=== PATIENT | male | born 1980 | race Two or more races ===

== ENCOUNTER 2020-06-18 22:47 | Emergency (ER) | payer SELFPAY ==
[~2020-06-18] VITALS: Ht 175.3 cm; Wt 77.7 kg
--- NOTE | 2020-06-19 01:02 | NUR ---
pt to room from lobby
[2020-06-19] MEDS ORDERED: SODIUM CHLORIDE FLUSH 10ML SYR IVF ONE (01:30)
[2020-06-19] MEDS ORDERED: ONDANSETRON 2MG/ML, 2ML IVPush ONE (01:30)
[2020-06-19] MEDS ORDERED: KETOROLAC 30 MG/1 ML IVPush ONE (01:30)
[2020-06-19] MEDS ORDERED: MORPHINE SULFATE 4 MG/ML, 1ML IVPush PRN (01:30)
[2020-06-19 01:42] LABS: MEAN CORPUSCULAR HEMOGLOBIN 29.9 pg (27.5-34.5); MEAN PLATELET VOLUME 7.4 fL (7.4-10.4); PLATELET COUNT 310 x10^3/uL (130-400); RED BLOOD COUNT 5.27 x10^6/uL (4.38-5.82); RED CELL DISTRIBUTION WIDTH 13.5 % (9.4-14.8)
[2020-06-19] MEDS ORDERED: MORPHINE SULFATE 4 MG/ML, 1ML ONE (01:46)
[2020-06-19] MEDS ORDERED: ONDANSETRON 2MG/ML, 2ML ONE (01:46)
[2020-06-19] MEDS ORDERED: KETOROLAC 30 MG/1 ML ONE (01:46)
[2020-06-19 01:50] LABS: ALANINE AMINOTRANSFERASE 22 U/L (12-78); ANION GAP 1 mmol/L (5-15); CALCIUM 8.6 mg/dL (8.5-10.1); CHLORIDE 107 mmol/L (98-107); CREATININE 1.44 mg/dL (0.7-1.3)
[2020-06-19 01:53] LABS: ALKALINE PHOSPHATASE 86 U/L (45-117); BILIRUBIN,TOTAL 0.4 mg/dL (0.2-1.0); TOTAL PROTEIN 7.5 g/dL (6.4-8.2)
[2020-06-19 02:09] LABS: MD YES
[2020-06-19 02:11] LABS: <PLATELET ESTIMATE> ADEQUATE; <PLT MORPHOLOGY> NORMAL PLT MORPH; ANISOCYTOSIS 1+; EOS#(MANUAL) 0.58 x10^3/uL (0.0-0.4); EOS% (MANUAL) 7 % (1-7); LYMPH#(MANUAL) 3.24 x10^3/uL (1-3.4); LYMPHS% (MANUAL) 39 % (22-44); MONOS#(MANUAL) 0.66 x10^3/uL (0.3-2.7); MONOS% (MANUAL) 8 % (2-9); REACTIVE LYMPHS % (MANUAL) 6 % (0-0); SEG#(MANUAL) 3.32 x10^3/uL (1.8-6.8); SEGS% (MANUAL) 40 % (42-75)
[2020-06-19] MEDS ORDERED: OMNIPAQUE 350 MG/ML, 100ML BOTTLE ONE (02:16)
[2020-06-19 02:21] LABS: MICROSCOPIC INDICATED
--- NOTE | 2020-06-19 02:36 | NUR ---
REPORT RECIEVED FROM [facility]
[2020-06-19 03:48] VITALS: BP 111/73
== END 2020-06-19 03:56 | disposition home or self-care (01) ==
LOC: ED 06-19 01:59
DX: R10.32 Left lower quadrant pain (principal); R31.29 Other microscopic hematuria
CPT/HCPCS: 36415; 74177; 80053; 81001; 83690; 85025; 96374; 96375; 99285; J1885; J2270; J2405; Q9967